=== PATIENT | male | born 2000 | race Two or more races ===

== ENCOUNTER → 2020-03-08 | Outpatient (CLI) | payer OTHER | END | disposition home or self-care (01) | LOC: STAR 15:10 | PROVIDERS: ATTEND Anesthesiology | DX: Z20.828 Contact with and (suspected) exposure to other viral communicable diseases (principal) | CPT/HCPCS: 87635 ==

== ENCOUNTER 2020-03-14 11:58 | Day surgery (SDC) | payer OTHER ==
[~2020-03-14] VITALS: Ht 177.8 cm; Wt 64.0 kg
[~2020-03-14 11:58] MED LIST: LIDOCAINE/PF 1%, 30ML ONE
[2020-03-14] MEDS ORDERED: CHLORHEXIDINE 15 ML UDC MM STA (12:16)
[2020-03-14 12:18] VITALS: BP 128/80
[2020-03-14] MEDS ORDERED: LACTATED RINGERS 1,000 ML IV SCH (12:30)
[2020-03-14 12:38] VITALS: BP 128/80
[2020-03-14] MEDS ORDERED: FLONASE (13:02)
[2020-03-14] MEDS ORDERED: ANTIBIOTIC (13:02)
[2020-03-14] MEDS ORDERED: MIDAZOLAM 1 MG/ML, 2ML ONE (14:13)
[2020-03-14] MEDS ORDERED: FENTANYL PF 100 MCG/2ML ONE (14:13)
[2020-03-14] MEDS ORDERED: BUPIVACAINE/PF 0.5% ONE (14:43)
[2020-03-14] MEDS ORDERED: LIDOCAINE/PF 1%, 30ML ONE (14:43)
[2020-03-14] MEDS ORDERED: EPINEPHRINE 1 MG/ML, 1ML ONE (14:43)
[2020-03-14] MEDS ORDERED: NEOSPORIN OINT, 15GM ONE (15:01)
[2020-03-14] MEDS ORDERED: KETOROLAC 30 MG/1 ML ONE (15:12)
[2020-03-14] MEDS ORDERED: hydrALAzine 20 MG/ML, 1ML IV PRN (15:30)
[2020-03-14] MEDS ORDERED: PROMETHAZINE 25 MG/ML, 1ML IVPush PRN (15:30)
[2020-03-14] MEDS ORDERED: ALBUTEROL SULFATE 2.5 MG/3 ML NPPB PRN (15:30)
[2020-03-14] MEDS ORDERED: FENTANYL PF 100 MCG/2ML IV PRN (15:30)
[2020-03-14] MEDS ORDERED: OXYcodone 5 MG/5 ML ORAL.SOL UDC PO PRN (15:30)
[2020-03-14] MEDS ORDERED: LABETALOL 5MG/ML, 20ML IV PRN (15:30)
[2020-03-14] MEDS ORDERED: ACETAMINOPHEN 325 MG TABLET PO PRN (15:30)
[2020-03-14] MEDS ORDERED: HYDROmorphone 1 MG/ML, 1ML INJ IVPush PRN (15:30)
[2020-03-14] MEDS ORDERED: LORazepam 2 MG/ML, 1ML IVPush PRN (15:30)
[2020-03-14] MEDS ORDERED: MEPERIDINE/PF 25MG/0.5ML IVPush PRN (15:30)
[2020-03-14] MEDS ORDERED: ONDANSETRON 2MG/ML, 2ML ONE (15:35)
[2020-03-14] MEDS ORDERED: PROPOFOL 10 MG/ML, 20ML ONE (15:35)
[2020-03-14] MEDS ORDERED: CEFAZOLIN 1,000 MG ONE (15:35)
[2020-03-14] MEDS ORDERED: LIDOCAINE-MPF 2% ,5ML ONE (15:35)
== END 2020-03-14 18:45 | disposition home or self-care (01) ==
LOC: OUT 11:58
PROVIDERS: ATTEND Orthopaedic Surgery
DX: S83.281A Other tear of lateral meniscus, current injury, right knee, initial encounter (principal); Z79.899 Other long term (current) drug therapy; Z88.0 Allergy status to penicillin; Z88.8 Allergy status to other drugs, medicaments and biological substances; Z82.49 Family history of ischemic heart disease and other diseases of the circulatory system; X58.XXXA Exposure to other specified factors, initial encounter; Y93.89 Activity, other specified; Y92.89 Other specified places as the place of occurrence of the external cause; Y99.8 Other external cause status
CPT/HCPCS: 29881; J0171; J0690; J1885; J2250; J2405; J2704; J3010; J7120